=== PATIENT | female | born 2000 | race Caucasian/White ===

== ENCOUNTER 2022-10-08 10:38 | Outpatient (CLI) | payer MEDICAID ==
--- NOTE | 2022-10-08 10:52 | XRAY Report ---
PROCEDURE: Chest 2 View X-Ray INDICATIONS: CHEST CONGESTION TECHNIQUE: 2 views of the chest were acquired. COMPARISON: None. FINDINGS: Surgical changes and devices: None. Lungs and pleura: No pleural effusions or pneumothorax. Lungs are clear. Mediastinum: Mediastinal contours are normal. Heart size is normal. Bones and chest wall: No suspicious bony abnormalities. Soft tissues appear unremarkable. IMPRESSION: No acute pulmonary process. Reviewed by: Natasha Smith MD on 10/08/2022 10:51 AM [facility] Approved by: Natasha Smith MD on 10/08/2022 10:51 AM [facility] Station ID: [id number]
== END 2022-10-08 10:41 | disposition home or self-care (01) ==
LOC: DI.S 10:38
PROVIDERS: ATTEND Physician Assistant Medical
DX: R09.89 Other specified symptoms and signs involving the circulatory and respiratory systems (principal); R05.1 Acute cough

== ENCOUNTER 2023-03-17 13:30 | Outpatient (CLI) | payer MEDICAID | END 2023-03-17 23:59 | disposition home or self-care (01) | LOC: LAB.S 13:30 | PROVIDERS: ATTEND Physician Assistant Medical | DX: R07.0 Pain in throat (principal) | CPT/HCPCS: 87070 ==